=== PATIENT | female | born 1975 | race Caucasian/White ===

== ENCOUNTER → 2019-02-24 | Emergency (ER) | payer OTHER ==
--- NOTE | 2019-02-24 15:45 | NUR ---
Called NO response
--- NOTE | 2019-02-24 16:00 | NUR ---
Called NO response
--- NOTE | 2019-02-24 16:07 | NUR ---
Called NO response [employer] prior to triage
== END | disposition left against medical advice (07) ==
LOC: ER 15:20
DX: Z53.21 Procedure and treatment not carried out due to patient leaving prior to being seen by health care provider (principal)